=== PATIENT | male | born 1975 | race Caucasian/White ===

== ENCOUNTER 2020-02-16 13:21 | Emergency (ER) | payer MEDICAID ==
[~2020-02-16] VITALS: Ht 175.3 cm; Wt 68.0 kg
[2020-02-16 13:25] VITALS: BP 122/80
== END 2020-02-16 14:30 | disposition home or self-care (01) ==
LOC: ER 13:21
DX: M79.604 Pain in right leg (principal); G89.29 Other chronic pain; B20 Human immunodeficiency virus [HIV] disease; F10.10 Alcohol abuse, uncomplicated; Y90.9 Presence of alcohol in blood, level not specified
CPT/HCPCS: 99283

== ENCOUNTER 2020-02-16 16:50 | Emergency (ER) | payer MEDICAID ==
[~2020-02-16] VITALS: Ht 182.9 cm; Wt 73.0 kg
[2020-02-16 16:54] VITALS: BP 146/82
== END 2020-02-16 18:59 | disposition left against medical advice (07) ==
LOC: ER 16:50
DX: Z53.21 Procedure and treatment not carried out due to patient leaving prior to being seen by health care provider (principal); R56.9 Unspecified convulsions; B20 Human immunodeficiency virus [HIV] disease